=== PATIENT | female | born 1950 | race Caucasian/White ===

== ENCOUNTER 2022-02-23 20:04 | Inpatient (IN) ==
[2022-02-24] MEDS ORDERED: Ondansetron 4 MG/2 ML VIAL IVP PRN (04:46)
[2022-02-24] MEDS ORDERED: Naloxone 0.4 MG/ML INJ IVP PRN (04:46)
[2022-02-24] MEDS ORDERED: Haloperidol Lactate 5 MG/ML VIAL IVP ONE ×2 (04:47→22:46)
[2022-02-24] MEDS ORDERED: Ipratropium/Albuterol Neb 3 ML IH PRN ×2 (04:50→14:35)
[2022-02-24] MEDS ORDERED: Vancomycin 500 MG in 0.9 % Sodium Chloride 250 ML IVPB SCH (06:00)
[2022-02-24 06:13] LABS: Basophils % 0.2 %; Hematocrit 43.5 % (35.3-44.9); Hemoglobin 13.7 g/dL (11.5-15.4); Immature Granulocytes % 0.4 % (0-4); Lymphocytes # 0.7 K/mcL (0.6-4.6); Lymphocytes % 4.1 %; Mean Corpuscular HGB Conc 31.5 g/dL (31.6-35.5); Mean Corpuscular Hemoglobin 27.7 pg (28.0-33.3); Mean Corpuscular Volume 87.9 fL (83.0-100.0); Mean Platelet Volume 9.3 fL (9.4-12.4); Monocytes # 0.3 K/mcL (0.0-1.3); Monocytes % 1.8 %; Neutrophils # 15.9 K/mcL (1.6-8.9); Platelet Count 161 K/mcL (140-400); Red Blood Count 4.95 M/mcL (3.82-4.97); Red Cell Distribution Width 17.4 % (11.5-14.5); Segmented Neutrophils % 93.5 %
[2022-02-24 06:21] LABS: INR 1.4; Prothrombin Time 15.5 Seconds (9.4-12.1)
[2022-02-24 06:24] LABS: Activated Partial Thrombo Time 27.3 Seconds (26.0-36.0)
[2022-02-24 06:49] LABS: Calcium 8.7 mg/dL (8.6-10.3); Potassium 4.5 mEq/L (3.5-5.1); Thyroid Stimulating Hormone 1.704 mcIU/mL (0.340-5.600); Troponin I 0.04 ng/mL (< 0.04)
[2022-02-24 06:50] LABS: ABG Base Excess 3 mEq/L (-2 to 3); ABG HCO3 22 mEq/L (21-27); ABG Oxygen Saturation 100 % (95-98); ABG PCO2 23 mmHg (35-45); ABG PO2 183 mmHg (85-104); ABG TCO2 23 mEq/L (20-26); Blood Gas Modality 6LPM
[2022-02-24] MEDS ORDERED: Iopamidol - 370 500 ML MLS IVP ONE (06:53)
[2022-02-24 07:23] LABS: Adenovirus Not Detected (Not Detect); Bordetella Pertussis Not Detected (Not Detect); Chlamydophila pneumoniae Not Detected (Not Detect); Coronavirus 229E Not Detected (Not Detect); Coronavirus HKU1 Not Detected (Not Detect); Coronavirus NL63 Not Detected (Not Detect); Coronavirus OC43 Not Detected (Not Detect); Human Metapneumovirus Not Detected (Not Detect); Human Rhinovirus/Enterovirus Not Detected (Not Detect); Influenza A Subtype 2009 H1 Not Detected (Not Detect); Influenza B Not Detected (Not Detect); Mycoplasma pneumoniae Not Detected (Not Detect); Parainfluenza Virus 1 Not Detected (Not Detect); Parainfluenza Virus 2 Not Detected (Not Detect); Parainfluenza Virus 3 Not Detected (Not Detect); Parainfluenza Virus 4 Not Detected (Not Detect); Respiratory Syncytial Virus Not Detected (Not Detect); SARS-CoV-2 Not Detected (Not Detect)
[2022-02-24] MEDS: *HR* Enoxaparin 30 MG/0.3 ML SYRINGE SQ SCH (08:56)
[2022-02-24] MEDS: Cefepime HCl 1,000 MG in 0.9 % Sodium Chloride Mini Bag 100 ML IVPB SCH (08:56)
[2022-02-24] MEDS: MethylPREDNISolone 40 MG/ML VIAL IVP SCH ×2 (08:56→18:24)
[2022-02-24 09:26] LABS: Bilirubin,Urine Negative (Negative); Blood,Urine Negative (Negative); Clarity,Urine Clear (Clear); Color,Urine Light-Yellow (Yellow); Glucose,Urine (UA) Normal (Normal); Hyaline Casts,Urine Few per lpf (None Seen); Ketones,Urine Negative (Negative); Leukocyte Esterase,Urine Negative (Negative); Nitrite,Urine Negative (Negative); PH,Urine 6.5 pH Units (5.0-8.0); Protein,Urine 50 mg/dL (Neg-Trace); RBC,Urine 0-3 per hpf (0-3); Specific Gravity,Urine 1.021 (1.010-1.025); Squamous Epithelial Cell,Urine Few per hpf (None-Few); Urobilinogen,Urine Normal (Normal); WBC,Urine 0-3 per hpf (0-3)
[2022-02-24 09:58] LABS: Amphetamine Screen,Urine Negative ng/mL (Cutoff=1000); Barbiturate Screen,Urine Negative ng/mL (Cutoff=200); Benzodiazepines Screen,Urine Positive ng/mL (Cutoff=200); Cannabinoid Screen,Urine Negative ng/mL (Cutoff = 50); Cocaine Screen,Urine Negative ng/mL (Cutoff= 300); Opiate Screen,Urine Positive ng/mL (Cutoff=300); Phencyclidine Screen,Urine Negative ng/mL (Cutoff=25)
[2022-02-24 11:10] LABS: ABG Base Excess 2 mEq/L (-2 to 3); ABG HCO3 28 mEq/L (21-27); ABG Oxygen Saturation 94 % (95-98); ABG PCO2 48 mmHg (35-45); ABG PH 7.38 pH Units (7.32-7.45); ABG PO2 71 mmHg (85-104); ABG TCO2 30 mEq/L (20-26)
[2022-02-24 12:08] LABS: Alanine Aminotransferase 3 Units/L (7-52); Albumin 3.3 g/dL (3.5-5.7); Albumin/Globulin Ratio 0.8 (1.1-2.2); Alkaline Phosphatase 102 Units/L (34-104); Aspartate Amino Transferase 8 Units/L (13-39); Bilirubin,Direct 0.3 mg/dL (0.0-0.2); Bilirubin,Indirect 0.4 mg/dL (0.0-1.0); Bilirubin,Total 0.7 mg/dL (0.3-1.0); C-Reactive Protein > 300 mg/L (Less than 10); Chol/HDL Ratio 2.9 (0-4.9); Cholesterol 101 mg/dL (< 200); Globulin 4.3 g/dL (2.4-3.5); HDL Cholesterol 35 mg/dL (40-59); LDL Cholesterol,Calculated 51 mg/dL (< 100); Magnesium 2.2 mg/dL (1.6-2.6); Phosphorous 3.4 mg/dL (2.7-4.5); Total Protein 7.6 g/dL (6.4-8.9); Triglycerides 77 mg/dL (< 150)
[2022-02-24] MEDS: Nicotine 14 MG PATCH.TD24 TD SCH (15:00)
[2022-02-24] MEDS ORDERED: QUEtiapine Fumarate 300 MG TABLET PO SCH (21:00)
[2022-02-24] MEDS: Acetaminophen 325 MG TABLET PO PRN (21:57)
[2022-02-25] MEDS ORDERED: *HR* LORazepam 2 MG/ML VIAL IVP ONE (04:53)
[2022-02-25] MEDS: Cefepime HCl 1,000 MG in 0.9 % Sodium Chloride Mini Bag 100 ML IVPB SCH (05:13)
[2022-02-25] MEDS: MethylPREDNISolone 40 MG/ML VIAL IVP SCH (05:13)
[2022-02-25 05:42] LABS: Hematocrit 40.1 % (35.3-44.9); Hemoglobin 12.8 g/dL (11.5-15.4); Mean Corpuscular HGB Conc 31.9 g/dL (31.6-35.5); Mean Corpuscular Hemoglobin 26.9 pg (28.0-33.3); Mean Corpuscular Volume 84.2 fL (83.0-100.0); Mean Platelet Volume 8.9 fL (9.4-12.4); Platelet Count 173 K/mcL (140-400); Red Blood Count 4.76 M/mcL (3.82-4.97); Red Cell Distribution Width 17.1 % (11.5-14.5); White Blood Count 12.8 K/mcL (4.3-11.1)
[2022-02-25 07:04] LABS: Calcium 9.8 mg/dL (8.6-10.3); Magnesium 2.3 mg/dL (1.6-2.6); Potassium 3.8 mEq/L (3.5-5.1)
[2022-02-25] MEDS: *HR* Enoxaparin 30 MG/0.3 ML SYRINGE SQ SCH (10:11)
[2022-02-25] MEDS: Nicotine 14 MG PATCH.TD24 TD SCH (10:14)
[2022-02-25 11:44] LABS: ABG Base Excess 3 mEq/L (-2 to 3); ABG HCO3 27 mEq/L (21-27); ABG Oxygen Saturation 94 % (95-98); ABG PCO2 36 mmHg (35-45); ABG PH 7.49 pH Units (7.32-7.45); ABG PO2 65 mmHg (85-104); ABG TCO2 28 mEq/L (20-26)
[2022-02-25] MEDS: Venlafaxine XR (24 HR) 75 MG CAP.ER.24H PO SCH (17:20)
[2022-02-25] MEDS: Famotidine 20 MG TABLET PO SCH (17:21)
[2022-02-25] MEDS: Cefepime HCl 1,000 MG in 0.9 % Sodium Chloride 10 ML IVP SCH (17:29)
[2022-02-25] MEDS: MetroNIDAZOLE 500 MG/100 ML 500 MG/100 ML BAG IVPB SCH (17:31)
[2022-02-25] MEDS ORDERED: 0.9 % Sodium Chloride 1,000 ML IVC SCH (17:45)
[2022-02-25] MEDS: QUEtiapine Fumarate 25 MG TABLET PO SCH (20:25)
[2022-02-25] MEDS: Acetaminophen 325 MG TABLET PO PRN (21:49)
[2022-02-26] MEDS: MetroNIDAZOLE 500 MG/100 ML 500 MG/100 ML BAG IVPB SCH ×3 (00:42→16:01)
[2022-02-26 03:14] LABS: Hematocrit 44.4 % (35.3-44.9); Mean Corpuscular HGB Conc 31.5 g/dL (31.6-35.5); Mean Corpuscular Hemoglobin 26.6 pg (28.0-33.3); Mean Corpuscular Volume 84.3 fL (83.0-100.0); Mean Platelet Volume 8.8 fL (9.4-12.4); Platelet Count 174 K/mcL (140-400); Red Blood Count 5.27 M/mcL (3.82-4.97); Red Cell Distribution Width 17.2 % (11.5-14.5); White Blood Count 16.1 K/mcL (4.3-11.1)
[2022-02-26] MEDS ORDERED: *HR* Metoprolol 5 MG/5 ML VIAL IVP ONE (03:28)
[2022-02-26 03:31] LABS: BUN/Creatinine Ratio 44 (6-26); Blood Urea Nitrogen 42 mg/dL (8-23); Calcium 9.8 mg/dL (8.6-10.3); Carbon Dioxide 26 mEq/L (23-29); Chloride 101 mEq/L (98-107); Glucose 126 mg/dL (70-105); Osmolality,Calculated 304 (280-300); Potassium 3.2 mEq/L (3.5-5.1); Sodium 141 mEq/L (136-145); eGFR For African Americans > 60 (> 60); eGFR For Non-African Americans 58 (> 60)
[2022-02-26] MEDS: Cefepime HCl 1,000 MG in 0.9 % Sodium Chloride 10 ML IVP SCH (04:47)
[2022-02-26 05:17] LABS: Hematocrit 44.7 % (35.3-44.9); Hemoglobin 14.3 g/dL (11.5-15.4); Mean Corpuscular Hemoglobin 26.9 pg (28.0-33.3); Mean Corpuscular Volume 84.2 fL (83.0-100.0); Mean Platelet Volume 8.8 fL (9.4-12.4); Platelet Count 172 K/mcL (140-400); Red Blood Count 5.31 M/mcL (3.82-4.97); Red Cell Distribution Width 17.3 % (11.5-14.5); White Blood Count 20.6 K/mcL (4.3-11.1)
[2022-02-26 05:28] LABS: BUN/Creatinine Ratio 46 (6-26); Blood Urea Nitrogen 40 mg/dL (8-23); Calcium 9.7 mg/dL (8.6-10.3); Carbon Dioxide 27 mEq/L (23-29); Chloride 102 mEq/L (98-107); Glucose 119 mg/dL (70-105); Magnesium 2.2 mg/dL (1.6-2.6); Osmolality,Calculated 299 (280-300); Potassium 3.3 mEq/L (3.5-5.1); Sodium 139 mEq/L (136-145); eGFR For African Americans > 60 (> 60); eGFR For Non-African Americans > 60 (> 60)
[2022-02-26] MEDS ORDERED: ALPRAZolam 0.5 MG TABLET PO PRN (06:27)
[2022-02-26] MEDS: Venlafaxine XR (24 HR) 75 MG CAP.ER.24H PO SCH (07:31)
[2022-02-26] MEDS: Famotidine 20 MG TABLET PO SCH (07:32)
[2022-02-26] MEDS: Nicotine 14 MG PATCH.TD24 TD SCH (07:33)
[2022-02-26] MEDS: *HR* Enoxaparin 30 MG/0.3 ML SYRINGE SQ SCH (07:33)
[2022-02-26] MEDS ORDERED: Potassium Chloride Elixir 20 MEQ/15 ML UDC PO ONE (09:20)
[2022-02-26] MEDS ORDERED: *HR* Labetalol 20 MG/4 ML SYRINGE IVP ONE (09:42)
[2022-02-26] MEDS ORDERED: *HR* HYDROcodone/Acet 7.5/325 mg TABLET PO ONE (09:43)
[2022-02-26] MEDS ORDERED: Vancomycin 500 MG in 0.9 % Sodium Chloride Mini Bag 100 ML IVPB ONE (12:10)
[2022-02-26] MEDS ORDERED: *HR* OxyCODONE/APAP 5/325 TABLET PO PRN (15:30)
[2022-02-26] MEDS: ALPRAZolam 0.25 MG TABLET PO SCH (20:15)
[2022-02-26] MEDS: Gabapentin 100 MG CAPSULE PO SCH (20:15)
[2022-02-26] MEDS: QUEtiapine Fumarate 25 MG TABLET PO SCH (20:15)
[2022-02-26] MEDS: Cefepime HCl 2,000 MG in 0.9 % Sodium Chloride Mini Bag 100 ML IVPB SCH (20:16)
[2022-02-26] MEDS: Acetaminophen 325 MG TABLET PO PRN (20:19)
[2022-02-27] MEDS: MetroNIDAZOLE 500 MG/100 ML 500 MG/100 ML BAG IVPB SCH ×3 (00:40→17:20)
[2022-02-27 02:07] LABS: Hemoglobin 14.7 g/dL (11.5-15.4); Mean Corpuscular HGB Conc 32.7 g/dL (31.6-35.5); Mean Corpuscular Hemoglobin 27.2 pg (28.0-33.3); Mean Corpuscular Volume 83.3 fL (83.0-100.0); Mean Platelet Volume 9.1 fL (9.4-12.4); Platelet Count 119 K/mcL (140-400); Red Cell Distribution Width 17.6 % (11.5-14.5); White Blood Count 12.3 K/mcL (4.3-11.1)
[2022-02-27] MEDS: Cefepime HCl 2,000 MG in 0.9 % Sodium Chloride Mini Bag 100 ML IVPB SCH (05:04)
[2022-02-27 06:02] LABS: BUN/Creatinine Ratio 48 (6-26); Blood Urea Nitrogen 49 mg/dL (8-23); Calcium 9.9 mg/dL (8.6-10.3); Carbon Dioxide 23 mEq/L (23-29); Chloride 106 mEq/L (98-107); Glucose 149 mg/dL (70-105); Osmolality,Calculated 310 (280-300); Potassium 4.4 mEq/L (3.5-5.1); Sodium 142 mEq/L (136-145); eGFR For African Americans > 60 (> 60); eGFR For Non-African Americans 53 (> 60)
[2022-02-27] MEDS ORDERED: 0.9 % Sodium Chloride 1,000 ML IVC SCH (08:15)
[2022-02-27] MEDS: *HR* Enoxaparin 30 MG/0.3 ML SYRINGE SQ SCH (08:32)
[2022-02-27] MEDS: Nicotine 14 MG PATCH.TD24 TD SCH (08:32)
[2022-02-27] MEDS: Venlafaxine XR (24 HR) 150 MG CAP.ER.24H PO SCH (08:33)
[2022-02-27] MEDS: Gabapentin 100 MG CAPSULE PO SCH ×3 (08:33→21:04)
[2022-02-27] MEDS ORDERED: Famotidine 20 MG TABLET PO SCH (09:00)
[2022-02-27] MEDS: ALPRAZolam 0.25 MG TABLET PO SCH (10:33)
[2022-02-27] MEDS ORDERED: *HR* Metoprolol 5 MG/5 ML VIAL IVP ONE (11:52)
[2022-02-27] MEDS ORDERED: Vancomycin 500 MG in 0.9 % Sodium Chloride Mini Bag 100 ML IVPB SCH (15:00)
[2022-02-27] MEDS: Cefepime HCl 1,000 MG in 0.9 % Sodium Chloride Mini Bag 100 ML IVPB SCH (18:29)
[2022-02-27] MEDS: ALPRAZolam 0.5 MG TABLET PO SCH (21:04)
[2022-02-27] MEDS: QUEtiapine Fumarate 25 MG TABLET PO SCH (21:04)
[2022-02-28] MEDS: MetroNIDAZOLE 500 MG/100 ML 500 MG/100 ML BAG IVPB SCH ×2 (00:09→07:50)
[2022-02-28 01:45] LABS: Calcium 9.4 mg/dL (8.6-10.3); Potassium 3.7 mEq/L (3.5-5.1)
[2022-02-28] MEDS: Cefepime HCl 1,000 MG in 0.9 % Sodium Chloride Mini Bag 100 ML IVPB SCH ×2 (06:13→17:58)
[2022-02-28] MEDS: Gabapentin 100 MG CAPSULE PO SCH ×3 (07:50→21:35)
[2022-02-28] MEDS: Venlafaxine XR (24 HR) 150 MG CAP.ER.24H PO SCH (07:50)
[2022-02-28] MEDS: ALPRAZolam 0.5 MG TABLET PO SCH ×2 (07:51→21:34)
[2022-02-28] MEDS: *HR* Enoxaparin 30 MG/0.3 ML SYRINGE SQ SCH (07:51)
[2022-02-28] MEDS: Nicotine 14 MG PATCH.TD24 TD SCH (07:51)
[2022-02-28] MEDS ORDERED: Famotidine 20 MG TABLET PO SCH (09:00)
[2022-02-28 11:19] VITALS: TEMP 97.8
[2022-02-28] MEDS: metroNIDAZOLE 500 MG TABLET PO SCH ×2 (15:24→21:35)
[2022-02-28] MEDS ORDERED: Ondansetron ODT 4 MG TAB.RAPDIS SL PRN ×2 (17:47→18:06)
[2022-02-28 19:59] VITALS: BP 143/74; PULSE 74; O2SAT 90
[2022-02-28] MEDS: QUEtiapine Fumarate 25 MG TABLET PO SCH (21:35)
== END 2022-02-28 23:07 | disposition home health service (06) | DRG 871 ==
LOC: 2NENU → SUATTDRO 02-24 04:46
PROVIDERS: ADMIT Internal Medicine; ATTEND Internal Medicine

== ENCOUNTER 2022-03-09 01:45 | Inpatient (IN) ==
[2022-03-09] MEDS ORDERED: Naloxone 0.4 MG/ML INJ IVP PRN (13:12)
[2022-03-09] MEDS ORDERED: Ipratropium/Albuterol Neb 3 ML IH SCH (13:30)
[2022-03-09] MEDS ORDERED: cefTRIAXone 1,000 MG in 0.9 % Sodium Chloride 10 ML IVP SCH (14:00)
[2022-03-09] MEDS: Ipratropium/Albuterol Neb 3 ML IH SCH ×2 (15:45→21:53)
[2022-03-09] MEDS ORDERED: *HR* Heparin 5,000 UNIT/ML VIAL ONE (16:06)
[2022-03-09] MEDS: D5% in 0.45% NACL 1,000 ML IVC SCH (16:11)
[2022-03-09] MEDS: *HR* Heparin 5,000 UNIT/ML VIAL SQ SCH (16:17)
[2022-03-09] MEDS: Cefepime HCl 2,000 MG in 0.9 % Sodium Chloride Mini Bag 100 ML IVPB SCH (16:24)
[2022-03-09] MEDS ORDERED: Vancomycin 500 MG in 0.9 % Sodium Chloride 250 ML IVPB ONE (21:00)
[2022-03-09 21:27] LABS: Basophils % 0.1 %; Hematocrit 44.9 % (35.3-44.9); Hemoglobin 14.2 g/dL (11.5-15.4); Immature Granulocytes % 0.6 % (0-4); Lymphocytes # 1.8 K/mcL (0.6-4.6); Lymphocytes % 7.7 %; Mean Corpuscular HGB Conc 31.6 g/dL (31.6-35.5); Mean Corpuscular Hemoglobin 28.2 pg (28.0-33.3); Mean Corpuscular Volume 89.1 fL (83.0-100.0); Mean Platelet Volume 10.5 fL (9.4-12.4); Monocytes # 1.2 K/mcL (0.0-1.3); Monocytes % 5.1 %; Neutrophils # 19.7 K/mcL (1.6-8.9); Platelet Count 216 K/mcL (140-400); Red Blood Count 5.04 M/mcL (3.82-4.97); Red Cell Distribution Width 19.9 % (11.5-14.5); Segmented Neutrophils % 86.5 %; White Blood Count 22.7 K/mcL (4.3-11.1)
[2022-03-09 21:31] LABS: VBG HCO3 28 mEq/L (21-27); VBG PCO2 42 mmHg (41-51); VBG PH 7.43 pH Units (7.32-7.42); VBG PO2 168 mmHg (25-50)
[2022-03-09 21:35] LABS: INR 1.3; Prothrombin Time 14.7 Seconds (9.4-12.1)
[2022-03-09] MEDS: QUEtiapine Fumarate 300 MG TABLET PO SCH (21:45)
[2022-03-09 21:48] LABS: Alanine Aminotransferase 7 Units/L (7-52); Albumin 3.3 g/dL (3.5-5.7); Albumin/Globulin Ratio 0.9 (1.1-2.2); Alkaline Phosphatase 249 Units/L (34-104); Aspartate Amino Transferase 14 Units/L (13-39); BUN/Creatinine Ratio 35 (6-26); Bilirubin,Direct 0.2 mg/dL (0.0-0.2); Bilirubin,Indirect 0.5 mg/dL (0.0-1.0); Bilirubin,Total 0.7 mg/dL (0.3-1.0); Blood Urea Nitrogen 24 mg/dL (8-23); Calcium 9.1 mg/dL (8.6-10.3); Carbon Dioxide 28 mEq/L (23-29); Chloride 107 mEq/L (98-107); Globulin 3.6 g/dL (2.4-3.5); Glucose 169 mg/dL (70-105); Lactate Dehydrogenase 232 Units/L (140-271); Magnesium 1.6 mg/dL (1.6-2.6); Osmolality,Calculated 306 (280-300); Phosphorous 2.1 mg/dL (2.7-4.5); Potassium 3.5 mEq/L (3.5-5.1); Sodium 144 mEq/L (136-145); Total Protein 6.9 g/dL (6.4-8.9); eGFR For African Americans > 60 (> 60); eGFR For Non-African Americans > 60 (> 60)
[2022-03-09 21:51] LABS: C-Reactive Protein 270 mg/L (Less than 10)
[2022-03-09 23:36] LABS: Adenovirus Not Detected (Not Detect); Bordetella Pertussis Not Detected (Not Detect); Chlamydophila pneumoniae Not Detected (Not Detect); Coronavirus 229E Not Detected (Not Detect); Coronavirus HKU1 Not Detected (Not Detect); Coronavirus NL63 Not Detected (Not Detect); Coronavirus OC43 Not Detected (Not Detect); Human Metapneumovirus Not Detected (Not Detect); Human Rhinovirus/Enterovirus Not Detected (Not Detect); Influenza A Subtype 2009 H1 Not Detected (Not Detect); Influenza B Not Detected (Not Detect); Mycoplasma pneumoniae Not Detected (Not Detect); Parainfluenza Virus 1 Not Detected (Not Detect); Parainfluenza Virus 2 Not Detected (Not Detect); Parainfluenza Virus 3 Not Detected (Not Detect); Parainfluenza Virus 4 Not Detected (Not Detect); Respiratory Syncytial Virus Not Detected (Not Detect); SARS-CoV-2 Not Detected (Not Detect)
[2022-03-10] MEDS: Cefepime HCl 2,000 MG in 0.9 % Sodium Chloride Mini Bag 100 ML IVPB SCH ×4 (01:41→22:59)
[2022-03-10 01:44] LABS: Hematocrit 46.9 % (35.3-44.9); Hemoglobin 14.6 g/dL (11.5-15.4); Mean Corpuscular HGB Conc 31.1 g/dL (31.6-35.5); Mean Corpuscular Hemoglobin 27.8 pg (28.0-33.3); Mean Corpuscular Volume 89.3 fL (83.0-100.0); Mean Platelet Volume 10.2 fL (9.4-12.4); Platelet Count 209 K/mcL (140-400); Red Blood Count 5.25 M/mcL (3.82-4.97); Red Cell Distribution Width 19.8 % (11.5-14.5); White Blood Count 20.8 K/mcL (4.3-11.1)
[2022-03-10] MEDS ORDERED: *HR* LORazepam 2 MG/ML VIAL IVP ONE (01:56)
[2022-03-10 02:25] LABS: BUN/Creatinine Ratio 31 (6-26); Blood Urea Nitrogen 21 mg/dL (8-23); Calcium 9.1 mg/dL (8.6-10.3); Carbon Dioxide 31 mEq/L (23-29); Chloride 105 mEq/L (98-107); Glucose 152 mg/dL (70-105); Osmolality,Calculated 302 (280-300); Potassium 3.3 mEq/L (3.5-5.1); Sodium 143 mEq/L (136-145); Troponin I 0.11 ng/mL (< 0.04); eGFR For African Americans > 60 (> 60); eGFR For Non-African Americans > 60 (> 60)
[2022-03-10] MEDS: Ipratropium/Albuterol Neb 3 ML IH SCH ×4 (04:25→21:44)
[2022-03-10] MEDS: D5% in 0.45% NACL 1,000 ML IVC SCH (06:32)
[2022-03-10] MEDS: *HR* Heparin 5,000 UNIT/ML VIAL SQ SCH ×2 (06:33→17:26)
[2022-03-10] MEDS ORDERED: *HR* Metoprolol 5 MG/5 ML VIAL IVP ONE (07:46)
[2022-03-10] MEDS: Venlafaxine XR (24 HR) 75 MG CAP.ER.24H PO SCH (10:40)
[2022-03-10] MEDS: D5% in 0.45% NACL w KCl 20 MEQ/1,000 ML MLS IVC SCH ×2 (10:41→22:59)
[2022-03-10] MEDS: *HR* Metoprolol 5 MG/5 ML VIAL IVP SCH ×3 (12:04→23:52)
[2022-03-10] MEDS: QUEtiapine Fumarate 300 MG TABLET PO SCH (21:30)
[2022-03-11] MEDS: Ipratropium/Albuterol Neb 3 ML IH SCH ×4 (03:55→21:54)
[2022-03-11] MEDS: *HR* Metoprolol 5 MG/5 ML VIAL IVP SCH ×4 (05:15→23:55)
[2022-03-11] MEDS: *HR* Heparin 5,000 UNIT/ML VIAL SQ SCH ×2 (05:16→18:32)
[2022-03-11] MEDS: Venlafaxine XR (24 HR) 75 MG CAP.ER.24H PO SCH (08:19)
[2022-03-11] MEDS ORDERED: *HR* FentaNYL (PF) 100 MCG/2 ML VIAL ONE (09:14)
[2022-03-11] MEDS ORDERED: *HR* Propofol 200 MG/20 ML VIAL IVP ONE (09:14)
[2022-03-11] MEDS ORDERED: Lidocaine -MPF 2% 5 ML VIAL ONE (09:15)
[2022-03-11] MEDS ORDERED: Lidocaine HCL 4 ML Topical Solution (Laryng-O-Jet Kit Sterile Pak) TP ONE (09:15)
[2022-03-11] MEDS ORDERED: Ondansetron 4 MG/2 ML VIAL ONE (09:15)
[2022-03-11] MEDS ORDERED: *HR* Succinylcholine 200 MG/10 ML VIAL IVP ONE (09:15)
[2022-03-11] MEDS ORDERED: EPHEDrine 50 MG/ML VIAL ONE (09:42)
[2022-03-11] MEDS ORDERED: EPINEPHrine 1 MG/ML VIAL ONE (09:47)
[2022-03-11] MEDS: Cefepime HCl 2,000 MG in 0.9 % Sodium Chloride Mini Bag 100 ML IVPB SCH ×2 (11:59→19:54)
[2022-03-11 15:02] LABS: BUN/Creatinine Ratio 26 (6-26); Blood Urea Nitrogen 18 mg/dL (8-23); Calcium 8.3 mg/dL (8.6-10.3); Carbon Dioxide 26 mEq/L (23-29); Chloride 101 mEq/L (98-107); Glucose 165 mg/dL (70-105); Osmolality,Calculated 292 (280-300); Potassium 3.5 mEq/L (3.5-5.1); Sodium 138 mEq/L (136-145); eGFR For African Americans > 60 (> 60); eGFR For Non-African Americans > 60 (> 60)
[2022-03-11] MEDS: D5% in 0.45% NACL w KCl 20 MEQ/1,000 ML MLS IVC SCH (15:27)
[2022-03-11] MEDS ORDERED: QUEtiapine Fumarate 25 MG TABLET PO SCH (21:00)
[2022-03-11] MEDS: Melatonin 3 MG TABLET PO PRN (21:37)
[2022-03-11] MEDS ORDERED: Acetaminophen IV 1,000 MG/100 ML BAG IVPB ONE (22:07)
[2022-03-12] MEDS ORDERED: *HR* LORazepam 2 MG/ML VIAL IVP ONE (03:55)
[2022-03-12] MEDS: *HR* Heparin 5,000 UNIT/ML VIAL SQ SCH (04:13)
[2022-03-12] MEDS: Ipratropium/Albuterol Neb 3 ML IH SCH ×4 (04:13→15:10)
[2022-03-12] MEDS: D5% in 0.45% NACL w KCl 20 MEQ/1,000 ML MLS IVC SCH (04:13)
[2022-03-12 05:41] LABS: BUN/Creatinine Ratio 29 (6-26); Blood Urea Nitrogen 23 mg/dL (8-23); Calcium 8.1 mg/dL (8.6-10.3); Carbon Dioxide 28 mEq/L (23-29); Chloride 102 mEq/L (98-107); Glucose 132 mg/dL (70-105); Magnesium 1.1 mg/dL (1.6-2.6); Osmolality,Calculated 288 (280-300); Phosphorous 1.7 mg/dL (2.7-4.5); Potassium 3.4 mEq/L (3.5-5.1); Sodium 136 mEq/L (136-145); eGFR For African Americans > 60 (> 60); eGFR For Non-African Americans > 60 (> 60)
[2022-03-12 06:08] LABS: Hemoglobin 10.6 g/dL (11.5-15.4); Immature Granulocytes % 0.4 % (0-4)
[2022-03-12 06:11] LABS: Basophils % 0.1 %; Hematocrit 32.5 % (35.3-44.9); Immature Platelets 5.8 % (1.1-6.1); Lymphocytes # 1.1 K/mcL (0.6-4.6); Lymphocytes % 11.9 %; Mean Corpuscular HGB Conc 32.6 g/dL (31.6-35.5); Monocytes # 0.6 K/mcL (0.0-1.3); Monocytes % 6.2 %; Neutrophils # 7.8 K/mcL (1.6-8.9); Red Blood Count 3.78 M/mcL (3.82-4.97); Red Cell Distribution Width 18.8 % (11.5-14.5); Segmented Neutrophils % 81.4 %; White Blood Count 9.6 K/mcL (4.3-11.1)
[2022-03-12 06:18] LABS: Platelet Count 64 K/mcL (140-400)
[2022-03-12] MEDS: *HR* Metoprolol 5 MG/5 ML VIAL IVP SCH ×3 (06:51→17:30)
[2022-03-12] MEDS ORDERED: Potassium Phosphate 44 MEQ in 0.9 % Sodium Chloride 250 ML IVPB ONE (07:42)
[2022-03-12] MEDS: Cefepime HCl 2,000 MG in 0.9 % Sodium Chloride Mini Bag 100 ML IVPB SCH ×2 (08:43→21:03)
[2022-03-12] MEDS: Venlafaxine XR (24 HR) 75 MG CAP.ER.24H PO SCH (09:17)
[2022-03-12] MEDS ORDERED: Ipratropium/Albuterol Neb 3 ML IH PRN (15:53)
[2022-03-12] MEDS: QUEtiapine Fumarate 25 MG TABLET PO SCH (21:04)
[2022-03-12] MEDS ORDERED: *HR* LORazepam 0.5 MG TABLET PO ONE (23:08)
[2022-03-12] MEDS: Melatonin 3 MG TABLET PO PRN (23:23)
[2022-03-13] MEDS: *HR* Metoprolol 5 MG/5 ML VIAL IVP SCH ×3 (00:19→08:00)
[2022-03-13] MEDS ORDERED: *HR* HYDROcodone/Acet 5/325 mg TABLET PO ONE (07:04)
[2022-03-13] MEDS: Venlafaxine XR (24 HR) 75 MG CAP.ER.24H PO SCH (07:57)
[2022-03-13 08:42] LABS: Mean Corpuscular Hemoglobin 27.7 pg (28.0-33.3); Red Cell Distribution Width 19.2 % (11.5-14.5)
[2022-03-13 08:44] LABS: Hematocrit 35.2 % (35.3-44.9); Immature Platelets 6.8 % (1.1-6.1); Mean Corpuscular HGB Conc 31.3 g/dL (31.6-35.5); Mean Corpuscular Volume 88.7 fL (83.0-100.0); Mean Platelet Volume 9.1 fL (9.4-12.4); Red Blood Count 3.97 M/mcL (3.82-4.97)
[2022-03-13 09:00] LABS: BUN/Creatinine Ratio 31 (6-26); Blood Urea Nitrogen 25 mg/dL (8-23); Calcium 8.5 mg/dL (8.6-10.3); Carbon Dioxide 31 mEq/L (23-29); Chloride 102 mEq/L (98-107); Glucose 97 mg/dL (70-105); Magnesium 2.2 mg/dL (1.6-2.6); Osmolality,Calculated 292 (280-300); Phosphorous 2.8 mg/dL (2.7-4.5); Potassium 3.6 mEq/L (3.5-5.1); Sodium 139 mEq/L (136-145); eGFR For African Americans > 60 (> 60); eGFR For Non-African Americans > 60 (> 60)
[2022-03-13] MEDS ORDERED: Piperacillin/Tazobactam 3.375 GM in 0.9 % Sodium Chloride Mini Bag 100 ML IVPB ONE (10:27)
[2022-03-13] MEDS: Ondansetron 4 MG/2 ML VIAL IVP PRN (11:06)
[2022-03-13] MEDS: Nicotine 14 MG PATCH.TD24 TD SCH (11:34)
[2022-03-13] MEDS: Cefepime HCl 2,000 MG in 0.9 % Sodium Chloride Mini Bag 100 ML IVPB SCH (11:59)
[2022-03-13] MEDS: Piperacillin/Tazobactam 3.375 GM in 0.9 % Sodium Chloride Mini Bag 100 ML IVPB SCH (20:25)
[2022-03-13] MEDS: ALPRAZolam 0.25 MG TABLET PO PRN (21:32)
[2022-03-13] MEDS: QUEtiapine Fumarate 25 MG TABLET PO SCH (21:32)
[2022-03-14] MEDS: Piperacillin/Tazobactam 3.375 GM in 0.9 % Sodium Chloride Mini Bag 100 ML IVPB SCH ×3 (02:55→17:48)
[2022-03-14] MEDS: *HR* HYDROcodone/Acet 5/325 mg TABLET PO ONE ×2 (03:41→05:57)
[2022-03-14 05:23] LABS: Hematocrit 31.4 % (35.3-44.9); Hemoglobin 9.7 g/dL (11.5-15.4); Mean Corpuscular HGB Conc 30.9 g/dL (31.6-35.5); Mean Corpuscular Hemoglobin 27.4 pg (28.0-33.3); Mean Corpuscular Volume 88.7 fL (83.0-100.0); Red Blood Count 3.54 M/mcL (3.82-4.97); Red Cell Distribution Width 18.8 % (11.5-14.5); White Blood Count 7.4 K/mcL (4.3-11.1)
[2022-03-14 05:25] LABS: Platelet Count 47 K/mcL (140-400)
[2022-03-14] MEDS: Venlafaxine XR (24 HR) 75 MG CAP.ER.24H PO SCH (09:21)
[2022-03-14] MEDS: Nicotine 14 MG PATCH.TD24 TD SCH (09:22)
[2022-03-14] MEDS: ALPRAZolam 0.25 MG TABLET PO PRN (20:47)
[2022-03-14] MEDS: QUEtiapine Fumarate 25 MG TABLET PO SCH (21:50)
[2022-03-15] MEDS: Piperacillin/Tazobactam 3.375 GM in 0.9 % Sodium Chloride Mini Bag 100 ML IVPB SCH ×3 (02:48→20:03)
[2022-03-15 03:15] LABS: Red Cell Distribution Width 18.5 % (11.5-14.5)
[2022-03-15 03:17] LABS: Hematocrit 32.8 % (35.3-44.9); Hemoglobin 10.4 g/dL (11.5-15.4); Immature Platelets 9.5 % (1.1-6.1); Mean Corpuscular HGB Conc 31.7 g/dL (31.6-35.5); Mean Corpuscular Hemoglobin 28.5 pg (28.0-33.3); Mean Corpuscular Volume 89.9 fL (83.0-100.0); Red Blood Count 3.65 M/mcL (3.82-4.97)
[2022-03-15 03:21] LABS: Platelet Count 41 K/mcL (140-400)
[2022-03-15] MEDS: Venlafaxine XR (24 HR) 75 MG CAP.ER.24H PO SCH (07:36)
[2022-03-15] MEDS: Nicotine 14 MG PATCH.TD24 TD SCH (07:36)
[2022-03-15] MEDS ORDERED: Acetaminophen 325 MG TABLET PO PRN (09:00)
[2022-03-15] MEDS: Ondansetron 4 MG/2 ML VIAL IVP PRN (12:06)
[2022-03-15] MEDS: Melatonin 3 MG TABLET PO PRN (20:06)
[2022-03-15] MEDS: QUEtiapine Fumarate 100 MG TABLET PO SCH (20:06)
[2022-03-15] MEDS: *HR* HYDROcodone/Acet 5/325 mg TABLET PO PRN (20:14)
[2022-03-16] MEDS: Piperacillin/Tazobactam 3.375 GM in 0.9 % Sodium Chloride Mini Bag 100 ML IVPB SCH ×3 (03:55→17:50)
[2022-03-16 04:33] LABS: Mean Corpuscular Hemoglobin 27.5 pg (28.0-33.3)
[2022-03-16 04:35] LABS: Hemoglobin 10.2 g/dL (11.5-15.4); Immature Platelets 6.8 % (1.1-6.1); Mean Corpuscular HGB Conc 30.9 g/dL (31.6-35.5); Mean Corpuscular Volume 88.9 fL (83.0-100.0); Mean Platelet Volume 11.6 fL (9.4-12.4); Red Blood Count 3.71 M/mcL (3.82-4.97); Red Cell Distribution Width 18.3 % (11.5-14.5); White Blood Count 9.5 K/mcL (4.3-11.1)
[2022-03-16] MEDS: Venlafaxine XR (24 HR) 75 MG CAP.ER.24H PO SCH (07:49)
[2022-03-16] MEDS: Nicotine 14 MG PATCH.TD24 TD SCH (07:49)
[2022-03-16] MEDS: *HR* HYDROcodone/Acet 5/325 mg TABLET PO PRN (07:55)
[2022-03-16] MEDS: Ondansetron 4 MG/2 ML VIAL IVP PRN (15:02)
[2022-03-16] MEDS: QUEtiapine Fumarate 100 MG TABLET PO SCH (20:16)
[2022-03-17] MEDS: Piperacillin/Tazobactam 3.375 GM in 0.9 % Sodium Chloride Mini Bag 100 ML IVPB SCH ×3 (03:05→19:59)
[2022-03-17 03:19] LABS: Red Cell Distribution Width 17.9 % (11.5-14.5)
[2022-03-17 03:21] LABS: Hemoglobin 10.8 g/dL (11.5-15.4); Immature Platelets 6.1 % (1.1-6.1); Mean Corpuscular HGB Conc 31.8 g/dL (31.6-35.5); Mean Corpuscular Hemoglobin 28.3 pg (28.0-33.3); Mean Platelet Volume 10.4 fL (9.4-12.4); Red Blood Count 3.82 M/mcL (3.82-4.97); White Blood Count 10.3 K/mcL (4.3-11.1)
[2022-03-17] MEDS: *HR* HYDROcodone/Acet 5/325 mg TABLET PO PRN ×3 (03:33→19:43)
[2022-03-17 03:40] LABS: BUN/Creatinine Ratio 22 (6-26); Blood Urea Nitrogen 22 mg/dL (8-23); Calcium 8.8 mg/dL (8.6-10.3); Carbon Dioxide 32 mEq/L (23-29); Chloride 100 mEq/L (98-107); Glucose 69 mg/dL (70-105); Magnesium 1.8 mg/dL (1.6-2.6); Osmolality,Calculated 294 (280-300); Phosphorous 2.5 mg/dL (2.7-4.5); Potassium 3.3 mEq/L (3.5-5.1); Sodium 141 mEq/L (136-145); eGFR For African Americans > 60 (> 60); eGFR For Non-African Americans 54 (> 60)
[2022-03-17] MEDS: Nicotine 14 MG PATCH.TD24 TD SCH (09:19)
[2022-03-17] MEDS: Venlafaxine XR (24 HR) 75 MG CAP.ER.24H PO SCH (09:19)
[2022-03-17] MEDS: Ondansetron 4 MG/2 ML VIAL IVP PRN (09:34)
[2022-03-17] MEDS: QUEtiapine Fumarate 100 MG TABLET PO SCH (19:38)
[2022-03-17] MEDS: Mirtazapine 15 MG TABLET PO SCH (19:43)
[2022-03-17] MEDS ORDERED: *HR* Metoprolol 5 MG/5 ML VIAL IVP ONE (21:31)
[2022-03-18] MEDS: Piperacillin/Tazobactam 3.375 GM in 0.9 % Sodium Chloride Mini Bag 100 ML IVPB SCH ×3 (03:27→21:28)
[2022-03-18] MEDS: Venlafaxine XR (24 HR) 75 MG CAP.ER.24H PO SCH (09:20)
[2022-03-18] MEDS: Nicotine 14 MG PATCH.TD24 TD SCH (09:21)
[2022-03-18] MEDS: *HR* HYDROcodone/Acet 5/325 mg TABLET PO PRN ×2 (09:26→21:27)
[2022-03-18] MEDS: QUEtiapine Fumarate 100 MG TABLET PO SCH (21:27)
[2022-03-18] MEDS: Mirtazapine 15 MG TABLET PO SCH (21:28)
[2022-03-19] MEDS: Piperacillin/Tazobactam 3.375 GM in 0.9 % Sodium Chloride Mini Bag 100 ML IVPB SCH ×3 (03:22→18:30)
[2022-03-19 04:29] LABS: Hemoglobin 10.7 g/dL (11.5-15.4); Mean Corpuscular HGB Conc 31.5 g/dL (31.6-35.5); Mean Corpuscular Hemoglobin 27.8 pg (28.0-33.3); Mean Corpuscular Volume 88.3 fL (83.0-100.0); Mean Platelet Volume 9.9 fL (9.4-12.4); Platelet Count 139 K/mcL (140-400); Red Blood Count 3.85 M/mcL (3.82-4.97); Red Cell Distribution Width 17.9 % (11.5-14.5); White Blood Count 7.3 K/mcL (4.3-11.1)
[2022-03-19 04:47] LABS: Calcium 8.5 mg/dL (8.6-10.3); Potassium 2.9 mEq/L (3.5-5.1)
[2022-03-19] MEDS ORDERED: Gadolinium Contrast Agent (WT Based) IV PRN (05:38)
[2022-03-19] MEDS: *HR* HYDROcodone/Acet 5/325 mg TABLET PO PRN ×3 (05:42→20:59)
[2022-03-19] MEDS ORDERED: Acetaminophen 325 MG TABLET PO PRN (09:27)
[2022-03-19] MEDS: Nicotine 14 MG PATCH.TD24 TD SCH (09:43)
[2022-03-19] MEDS: Venlafaxine XR (24 HR) 75 MG CAP.ER.24H PO SCH (09:43)
[2022-03-19] MEDS: Sennosides/Docusate Sodium TABLET PO SCH ×2 (15:52→20:51)
[2022-03-19] MEDS: polyethylene glycoL 3350 17 GM POWD.PACK PO SCH (15:52)
[2022-03-19] MEDS: QUEtiapine Fumarate 100 MG TABLET PO SCH (20:58)
[2022-03-19] MEDS: Melatonin 3 MG TABLET PO PRN (20:58)
[2022-03-19] MEDS: Mirtazapine 15 MG TABLET PO SCH (20:58)
[2022-03-20] MEDS: Piperacillin/Tazobactam 3.375 GM in 0.9 % Sodium Chloride Mini Bag 100 ML IVPB SCH ×3 (02:45→18:42)
[2022-03-20] MEDS ORDERED: Potassium Chloride Elixir 20 MEQ/15 ML UDC PO ONE (07:28)
[2022-03-20] MEDS: Venlafaxine XR (24 HR) 75 MG CAP.ER.24H PO SCH (08:38)
[2022-03-20] MEDS: Nicotine 14 MG PATCH.TD24 TD SCH (08:38)
[2022-03-20] MEDS: *HR* HYDROcodone/Acet 5/325 mg TABLET PO PRN ×2 (08:38→16:59)
[2022-03-20] MEDS: Ondansetron 4 MG/2 ML VIAL IVP PRN (08:38)
[2022-03-20] MEDS: polyethylene glycoL 3350 17 GM POWD.PACK PO SCH (08:39)
[2022-03-20] MEDS: Sennosides/Docusate Sodium TABLET PO SCH (08:39)
[2022-03-20 11:32] LABS: Influenza A PCR Negative (Negative); Influenza B PCR Negative (Negative); Resp. Syncytial Virus PCR Negative (Negative)
[2022-03-20 11:50] LABS: SARS-CoV-2 by PCR (In House) Negative (Negative)
[2022-03-20 14:19] VITALS: BP 144/90; PULSE 73; TEMP 97.6; O2SAT 97
== END 2022-03-20 18:47 | DRG 871 ==
LOC: 2NNU → SUATTDRO 13:40 → 2NENU 03-12 17:50
PROVIDERS: ADMIT Internal Medicine; ATTEND Internal Medicine
PROC: ENDOBBX (2022-03-11 08:45)